=== PATIENT | male | born 1990 | race Caucasian/White ===

== ENCOUNTER 2017-03-23 02:43 | Emergency (ER) | payer OTHER, SELFPAY ==
[~2017-03-23] VITALS: Ht 170.2 cm; Wt 81.8 kg
[2017-03-23 02:50] VITALS: BP 158/94
[2017-03-23] MEDS ORDERED: MAXITROL OPHTH SUSP 5 ML OU ONE ×2 (03:15→09:00)
[2017-03-23] MEDS ORDERED: TETRACAINE 0.5% OPHTH SOLN 4ML OU ONE (03:15)
[2017-03-23] MEDS ORDERED: KETOROLAC 0.5% OPHTH SOLN OU ONE (03:30)
== END 2017-03-23 03:46 | disposition home or self-care (01) ==
LOC: M ED 02:43
DX: H10.9 Unspecified conjunctivitis (principal); Z88.8 Allergy status to other drugs, medicaments and biological substances

== ENCOUNTER 2017-12-30 03:18 | Emergency (ER) | payer OTHER ==
[2017-12-30] MEDS: LISSAMINE GREEN OPHTH 1.5 MG STRIP OU (03:35)
[2017-12-30] MEDS: TETRACAINE 0.5% OPHTH SOLN 4ML OU (03:36)
[2017-12-30] MEDS: GATIFLOXACIN 0.5% 2.5ML OPHTH SOL OU (04:00)
[2017-12-30] MEDS: NORCO 5/325MG TABLET (BULK FOR ED) PO (04:11)
== END 2017-12-30 04:15 | disposition home or self-care (01) ==
LOC: M ED 03:18
DX: H16.8 Other keratitis (principal); Z88.8 Allergy status to other drugs, medicaments and biological substances; F17.210 Nicotine dependence, cigarettes, uncomplicated
CPT/HCPCS: 99282

== ENCOUNTER 2018-09-12 02:22 | Emergency (ER) | payer OTHER ==
[~2018-09-12] VITALS: Ht 170.2 cm; Wt 72.7 kg
[~2018-09-12 02:22] MED LIST: HYDR-3715 PO
[2018-09-12 02:23] VITALS: BP 167/100
[2018-09-12] MEDS ORDERED: TETRACAINE 0.5% OPHTH SOLN 4ML OU ONE (02:45)
[2018-09-12] MEDS ORDERED: CYCL1SOL17 OU ×2 (14:29→14:37)
[2018-09-12] MEDS ORDERED: ERYTOIN8 OU ×2 (14:29→14:37)
== END 2018-09-12 05:38 | disposition left against medical advice (07) ==
LOC: M ED 02:22
DX: H57.13 Ocular pain, bilateral (principal); Z53.21 Procedure and treatment not carried out due to patient leaving prior to being seen by health care provider

== ENCOUNTER 2018-09-12 12:40 | Emergency (ER) | payer OTHER ==
[~2018-09-12] VITALS: Ht 170.2 cm; Wt 72.7 kg
[2018-09-12] MEDS ORDERED: FLUORESCEIN OPHTH 1 MG STRIP OU ONE (13:45)
[2018-09-12] MEDS ORDERED: TETRACAINE 0.5% OPHTH SOLN 4ML OU ONE (13:45)
[2018-09-12] MEDS ORDERED: CYCL1SOL17 OU ×2 (14:29→14:37)
[2018-09-12] MEDS ORDERED: ERYTOIN8 OU ×2 (14:29→14:37)
[2018-09-12 14:43] VITALS: BP 131/82
== END 2018-09-12 14:45 | disposition home or self-care (01) ==
LOC: M ED 12:40
DX: H16.0 Corneal ulcer (principal); H10.33 Unspecified acute conjunctivitis, bilateral; H16.133 Photokeratitis, bilateral; Z86.69 Personal history of other diseases of the nervous system and sense organs; J45.909 Unspecified asthma, uncomplicated; Z79.899 Other long term (current) drug therapy

== ENCOUNTER → 2021-10-03 | Outpatient (CLI) | payer OTHER ==
[~2021-10-03] MED LIST changes: +CYCL1SOL17 OU; +ERYTOIN8 OU
== END ==
LOC: M WUC 10:42
PROVIDERS: ATTEND Physician Assistant Medical
DX: M25.511 Pain in right shoulder (principal)

== ENCOUNTER 2023-01-30 11:15 | Emergency (ER) | payer OTHER ==
[~2023-01-30] VITALS: Ht 170.2 cm; Wt 93.5 kg
[~2023-01-30 11:15] MED LIST changes: +CYCL1SOL14 OU; -CYCL1SOL17 OU
[2023-01-30] MEDS ORDERED: ASPIRIN 81MG CHEW TABLET PO ONE (12:35)
[2023-01-30 12:40] LABS: BASO # 0.1 10^3/uL (0.0-0.2); BASO % 0.8 % (0.0-1.0); EOS # 0.1 10^3/uL (0.0-0.5); EOS % 1.5 % (0.0-3.0); HEMATOCRIT 48.4 % (42.0-52.0); HEMOGLOBIN 17.1 g/dl (13.5-17.5); LYMPH # 1.9 10^3/uL (1.5-5.0); LYMPH % 31.2 % (24.0-44.0); MEAN CORPUSCULAR HEMOGLOBIN 28.6 pg (27.0-33.0); MEAN CORPUSCULAR HGB CONC 35.3 g/dl (32.0-36.5); MEAN CORPUSCULAR VOLUME 81.1 fl (80.0-96.0); MONO # 0.5 10^3/uL (0.0-0.8); MONO % 7.8 % (2.0-8.0); NEUTROPHILS # 3.6 10^3/uL (1.5-8.5); NEUTROPHILS % 58.5 % (36.0-66.0); PLATELET COUNT, AUTOMATED 268 10^3/uL (150-450); RED BLOOD COUNT 5.97 10^6/uL (4.30-6.10); WHITE BLOOD COUNT 6.2 10^3/uL (4.0-10.0)
[2023-01-30 13:05] LABS: CK-MB VALUE MASS < 1.0 NG/ML (<3.6)
[2023-01-30 13:07] LABS: CPK CREATINE PHOSPHOKINASE 158 U/L (46-171); MB/CK RELATIVE INDEX 0.63 (< OR =4)
[2023-01-30 13:08] LABS: BLOOD UREA NITROGEN < 5 MG/DL (9-23); CALCIUM LEVEL 9.4 MG/DL (8.5-10.1); CARBON DIOXIDE LEVEL 29 MMOL/L (20-31); CHLORIDE LEVEL 107 MMOL/L (98-107); CREATININE FOR GFR 0.84 MG/DL (0.70-1.30); GLOMERULAR FILTRATION RATE > 60.0 (>60); GLUCOSE, FASTING 102 MG/DL (60-100); POTASSIUM SERUM 4.2 MMOL/L (3.5-5.1); SODIUM LEVEL 141 MMOL/L (136-145)
[2023-01-30 13:19] LABS: ALBUMIN 4.1 G/DL (3.2-5.2); BILIRUBIN,DIRECT 0.3 MG/DL (<0.4); BILIRUBIN,TOTAL 1.1 MG/DL (0.3-1.2); TOTAL PROTEIN 7.6 G/DL (5.7-8.2)
[2023-01-30 13:22] LABS: THYROID STIMULATING HORMONE 1.754 uIU/ML (0.55-4.78)
[2023-01-30 13:23] LABS: FREE T4 1.03 NG/DL (0.89-1.76)
[2023-01-30 14:09] LABS: CK-MB VALUE MASS < 1.0 NG/ML (<3.6)
[2023-01-30 14:10] LABS: CPK CREATINE PHOSPHOKINASE 145 U/L (46-171); MB/CK RELATIVE INDEX 0.68 (< OR =4)
[2023-01-30 14:40] VITALS: BP 130/84; TEMP 97.2; O2SAT 99
== END 2023-01-30 14:43 | disposition home or self-care (01) ==
LOC: M ED 11:15
DX: R07.9 Chest pain, unspecified (principal); R00.1 Bradycardia, unspecified; I49.40 Unspecified premature depolarization; I10 Essential (primary) hypertension; Z88.9 Allergy status to unspecified drugs, medicaments and biological substances